=== PATIENT | male | born 1995 | race Caucasian/White ===

== ENCOUNTER 2018-07-01 01:53 | Emergency (ER) | payer OTHER ==
[~2018-07-01] VITALS: Ht 185.4 cm; Wt 79.4 kg
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
[2018-07-01] MEDS ORDERED: CEPHALEXIN 250 MG (KEFLEX) CAP PO STA (03:43)
[2018-07-01] MEDS ORDERED: CEPH500T PO (03:45)
[2018-07-01] MEDS ORDERED: NEOM28.33 TP (03:47)
[2018-07-01 04:04] VITALS: BP 139/75
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
== END 2018-07-01 04:04 | disposition home or self-care (01) ==
LOC: ER FS 01:59
DX: S01.21XA Laceration without foreign body of nose, initial encounter (principal); S01.112A Laceration without foreign body of left eyelid and periocular area, initial encounter; Y04.8XXA Assault by other bodily force, initial encounter
CPT/HCPCS: 12013; 12052; 70450; 70486; 72125